=== PATIENT | male | born 1990 | race Two or more races ===

== ENCOUNTER 2018-11-04 00:37 | Inpatient (IN) | payer OTHER ==
[~2018-11-04] VITALS: Ht 172.7 cm; Wt 54.4 kg
[2018-11-04] MEDS ORDERED: ONDANSETRON 2MG/ML, 2ML ONE (00:51)
[2018-11-04 01:18] LABS: BASOPHILS # (AUTO) 0.02 x10^3/uL (0-0.1); BASOPHILS % (AUTO) 0 % (0-1); EOSINOPHILS # (AUTO) 0.01 x10^3/uL (0-0.4); EOSINOPHILS % (AUTO) 0 % (1-7); LYMPHOCYTES # (AUTO) 0.64 x10^3/uL (1-3.4); LYMPHOCYTES % (AUTO) 5 % (22-44); MD NO; MEAN CORPUSCULAR HGB CONC 33.3 g/dL (33.2-36.2); MEAN PLATELET VOLUME 7.9 fL (7.4-10.4); MONOCYTES # (AUTO) 0.59 x10^3/uL (0.2-0.8); MONOCYTES % (AUTO) 4 % (2-9); NEUTROPHILS # (AUTO) 12.89 x10^3/uL (1.8-6.8); NEUTROPHILS % (AUTO) 91 % (42-75); PLATELET COUNT 232 x10^3/uL (130-400); RED CELL DISTRIBUTION WIDTH 12.9 % (9.4-14.8)
[2018-11-04] MEDS ORDERED: PROMETHAZINE 25 MG/ML, 1ML IM PRN ×2 (01:30→03:30)
[2018-11-04] MEDS ORDERED: SODIUM CHLORIDE 0.9% 1,000ML IVBOLUS ONE (01:30)
[2018-11-04] MEDS ORDERED: ONDANSETRON 2MG/ML, 2ML IVPush ONE (01:30)
[2018-11-04 01:31] LABS: ALANINE AMINOTRANSFERASE 35 U/L (12-78); ALBUMIN 4.5 g/dL (3.4-5.0); ANION GAP 10 mmol/L (5-15); CALCIUM 9.1 mg/dL (8.5-10.1); CHLORIDE 107 mmol/L (98-107); CREATININE 1.23 mg/dL (0.7-1.3)
[2018-11-04 01:33] LABS: ALKALINE PHOSPHATASE 68 U/L (45-117); BILIRUBIN,TOTAL 1.9 mg/dL (0.2-1.0); TOTAL PROTEIN 7.8 g/dL (6.4-8.2)
--- NOTE | 2018-11-04 01:50 | NUR ---
ALL RESULTS BACK. PT UP FOR RECHECK.
[2018-11-04] MEDS ORDERED: PROMETHAZINE 25 MG/ML, 1ML ONE (01:52)
--- NOTE | 2018-11-04 02:16 | NUR ---
PT GIVEN PO CHALLENGE PER MD REQUEST. AWAITING RESULT.
--- NOTE | 2018-11-04 02:29 | NUR ---
PT STILL FEELS NAUSEOUS AND STATES "I DONT FEEL COMFORTABLE GOING HOME." MD AWARE. MD TO ADM. AWAITING ADM ORDERS.
[2018-11-04] MEDS ORDERED: SODIUM CHLORIDE 0.9% 1,000 ML IV SCH ×2 (02:30→03:14)
[2018-11-04 03:06] VITALS: BP 123/67
[2018-11-04] MEDS ORDERED: morphine SULFATE 10 MG/ML, 1ML IVPush PRN (03:30)
[2018-11-04] MEDS ORDERED: ONDANSETRON ODT 4 MG PO PRN (03:30)
[2018-11-04] MEDS ORDERED: ACETAMINOPHEN 325 MG TABLET PO PRN ×2 (03:30→08:30)
[2018-11-04] MEDS ORDERED: hydrALAzine 20 MG/ML, 1ML IVPush PRN (03:30)
[2018-11-04] MEDS ORDERED: HYDROcodone/APAP 5/325 TABLET PO PRN (03:30)
[2018-11-04] MEDS ORDERED: ONDANSETRON 2MG/ML, 2ML IVPush PRN (03:30)
[2018-11-04 03:49] VITALS: BP 123/67
[2018-11-04 03:59] LABS: FREE T4 (FREE THYROXINE) 1.57 ng/dL (0.76-1.46); THYROID STIMULATING HORMONE 1.13 mIU/L (0.358-3.740)
[2018-11-04 04:06] LABS: HEMOGLOBIN A1C 5.3 % (4.2-6.3)
[2018-11-04 07:33] VITALS: BP 97/62
[2018-11-04] MEDS: SODIUM CHLORIDE 0.9% 1,000 ML IV SCH ×2 (10:00→19:46)
[2018-11-04 10:33] LABS: CLOSTRIDIUM DIFFICILE ANTIGEN NEGATIVE; CLOSTRIDIUM DIFFICILE TOXIN NEGATIVE (Negative)
[2018-11-04 14:21] VITALS: BP 97/59
[2018-11-04] MEDS ORDERED: DIPHENOXYLATE/ATROPINE TABLET PO PRN (15:30)
[2018-11-04 19:18] VITALS: BP 106/63
[2018-11-05 00:56] VITALS: BP 94/52
[2018-11-05 05:44] LABS: BASOPHILS # (AUTO) 0.02 x10^3/uL (0-0.1); BASOPHILS % (AUTO) 0 % (0-1); EOSINOPHILS # (AUTO) 0.04 x10^3/uL (0-0.4); EOSINOPHILS % (AUTO) 1 % (1-7); LYMPHOCYTES # (AUTO) 1.31 x10^3/uL (1-3.4); LYMPHOCYTES % (AUTO) 21 % (22-44); MD NO; MEAN CORPUSCULAR HEMOGLOBIN 32.2 pg (27.5-34.5); MEAN CORPUSCULAR HGB CONC 34.7 g/dL (33.2-36.2); MEAN CORPUSCULAR VOLUME 92.7 fL (81-97); MEAN PLATELET VOLUME 8.2 fL (7.4-10.4); MONOCYTES # (AUTO) 0.52 x10^3/uL (0.2-0.8); MONOCYTES % (AUTO) 8 % (2-9); NEUTROPHILS # (AUTO) 4.41 x10^3/uL (1.8-6.8); NEUTROPHILS % (AUTO) 70 % (42-75); PLATELET COUNT 148 x10^3/uL (130-400); RED BLOOD COUNT 4.12 x10^6/uL (4.38-5.82)
[2018-11-05 05:51] LABS: ANION GAP 4 mmol/L (5-15); CALCIUM 8.2 mg/dL (8.5-10.1); CHLORIDE 113 mmol/L (98-107)
[2018-11-05 05:56] LABS: ALANINE AMINOTRANSFERASE 21 U/L (12-78); ALKALINE PHOSPHATASE 47 U/L (45-117); BILIRUBIN,TOTAL 2.8 mg/dL (0.2-1.0); CHOL/HDL RATIO 2.2; CHOLESTEROL, TOTAL 109 mg/dL (140-239); CREATININE 1.14 mg/dL (0.7-1.3); HDL CHOL % 45 % (26-37); HDL CHOLESTEROL (DIRECT) 49 mg/dL (40-60); LDL CHOLESTEROL,CALCULATED 46 mg/dL (54-169); LDL/HDL RATIO 0.9 (0.5-3.0); TOTAL PROTEIN 5.7 g/dL (6.4-8.2); TRIGLYCERIDES 71 mg/dL (50-200); VLDL CHOLESTEROL 14 mg/dL (0-25)
[2018-11-05 06:49] VITALS: BP 100/64
[2018-11-05] MEDS ORDERED: DIPH1TAB6 PO (08:57)
== END 2018-11-05 09:46 | disposition home or self-care (01) | DRG 392 ==
LOC: ED 01:57 → EDIP 02:34 → 4NOR 03:02 → DCLOUNGE 11-05 09:35
PROVIDERS: ADMIT Internal Medicine; ATTEND Internal Medicine
DX: R19.7 Diarrhea, unspecified (principal); E86.0 Dehydration; I95.9 Hypotension, unspecified
CPT/HCPCS: 36415; 80053; 80061; 83036; 83690; 83735; 84439; 84443; 85025; 87324; 89055; 96361; 96372; 96374; G0378; J2405; J2550; Q0162; J7030